=== PATIENT | female | born 1970 | race Caucasian/White ===

== ENCOUNTER → 2020-10-28 12:41 | Outpatient (CLI) | payer MEDICAID ==
[2011-10-31 08:34] VITALS: BMI 27.4
== END | disposition home or self-care (01) ==
LOC: D.LAB 12:41
PROVIDERS: ATTEND Internal Medicine Pulmonary Disease
DX: Z11.52 Encounter for screening for COVID-19 (principal)

== ENCOUNTER → 2020-11-02 13:31 | Outpatient (CLI) | payer MEDICAID ==
[2011-10-31 08:34] VITALS: BMI 27.4
[2020-11-02 14:00] LABS: CREATININE - SERUM 0.8 mg/dL (0.6-1.3)
[2020-11-02 14:08] LABS: BASOPHILS 0.8 % (0-2); HEMATOCRIT 43.3 % (36.0-48.0); HEMOGLOBIN 14.4 g/dL (12-16); LYMPHOCYTES 48.6 % (15-50); MCHC 33.3 g/dL (31.0-37.0); MCV 90.2 fL (80.0-100.0); MEAN PLATELET VOLUME 8.5 fL (7.4-10.4); NEUTROPHILS 41.6 % (40-80); PLATELET COUNT 194 10x3/uL (130-400); RDW 14.6 % (11.5-14.5); WBC 5.5 10x3/uL (4.8-10.8)
[2020-11-03 09:12] LABS: ANA REFLEX - DIRECT Negative (Negative)
== END | disposition home or self-care (01) ==
LOC: D.LAB → D.CT 14:30 → D.RT 15:00
PROVIDERS: ATTEND Internal Medicine Pulmonary Disease
DX: R06.09 Other forms of dyspnea (principal); Z11.52 Encounter for screening for COVID-19; R05 Cough; R93.89 Abnormal findings on diagnostic imaging of other specified body structures; R59.0 Localized enlarged lymph nodes; J84.9 Interstitial pulmonary disease, unspecified

== ENCOUNTER → 2020-11-25 09:11 | Outpatient (CLI) | payer MEDICAID ==
[2011-10-31 08:34] VITALS: BMI 27.4
== END | disposition home or self-care (01) ==
LOC: D.ECHO 09:11
PROVIDERS: ATTEND Nurse Practitioner Family
DX: R09.02 Hypoxemia (principal)